=== PATIENT | male | born 1965 | race Asian ===

== ENCOUNTER 2016-11-14 12:49 | Inpatient (IN) | payer OTHER, BC ==
[~2016-11-14] VITALS: Ht 167.6 cm; Wt 84.7 kg
[~2016-11-14 12:49] MED LIST: AMLO10TA2 PO; ASPI325T4 PO; ATOR40TA78 PO; CHOL10003 PO; HYDR25TA6 PO; POTA10TA PO
[2016-11-14 13:19] LABS: HEMATOCRIT 30.8 % (39.2-51.8); HEMOGLOBIN 10.4 g/dL (13.7-18.0); WHITE BLOOD COUNT 9.6 x10^3/uL (3.4-10)
[2016-11-14] MEDS ORDERED: SODIUM CHLORIDE 0.9% 1,000ML IVBOLUS ONE (13:30)
[2016-11-14 13:32] LABS: ASPARTATE AMINO TRANSFERASE 12 U/L (15-37); BLOOD UREA NITROGEN 35 mg/dL (7-18)
[2016-11-14] MEDS ORDERED: PANTOPRAZOLE 80 MG in SODIUM CHLORIDE 0.9% 50 ML IVPB ONE (13:36)
[2016-11-14] MEDS ORDERED: SODIUM CHLORIDE 0.9% 1,000 ML IV ONE (13:36)
[2016-11-14] MEDS ORDERED: PANTOPRAZOLE 80 MG in SODIUM CHLORIDE 0.9% 100 ML IV SCH (13:36)
[2016-11-14] MEDS ORDERED: SODIUM CHLORIDE FLUSH 10ML SYR IVF ONE (14:00)
[2016-11-14] MEDS ORDERED: SODIUM CHLORIDE FLUSH 10ML SYR IVF PRN (15:30)
[2016-11-14] MEDS ORDERED: POLYETHYLENE GLYCOL 17 GM PACKET PO PRN (16:00)
[2016-11-14] MEDS ORDERED: BISACODYL 10 MG SUPP PR PRN (16:00)
[2016-11-14] MEDS ORDERED: ONDANSETRON ODT 4 MG PO PRN (16:00)
[2016-11-14] MEDS ORDERED: DOCUSATE 100 MG CAPSULE PO PRN (16:00)
[2016-11-14] MEDS ORDERED: ENALAPRILAT 1.25 MG/ML, 2ML IVPush PRN (16:00)
[2016-11-14] MEDS ORDERED: morphine SULFATE 10 MG/ML, 1ML IVPush PRN (16:00)
[2016-11-14] MEDS ORDERED: ONDANSETRON 2MG/ML, 2ML IVPush PRN (16:00)
[2016-11-14] MEDS ORDERED: LOSA100T6 PO (16:06)
[2016-11-14] MEDS ORDERED: METO50TA11 PO (16:06)
[2016-11-14] MEDS ORDERED: HYDR-879 PO (16:06)
[2016-11-14] MEDS ORDERED: CLOP75TA PO (16:06)
[2016-11-14] MEDS ORDERED: OMEP-110 PO (16:06)
[2016-11-14 17:51] VITALS: BP 122/81
[2016-11-14] MEDS: NS + 20MEQ KCL 1,000 ML IV SCH (18:01)
[2016-11-14] MEDS: METOPROLOL TARTRATE 25 MG TABLET PO SCH (18:05)
[2016-11-14 20:40] VITALS: BP 124/74
[2016-11-14 22:16] LABS: IS PT STATUS REG ER OR PRE ER? NO
[2016-11-15 02:00] VITALS: BP 104/65
[2016-11-15] MEDS: PANTOPRAZOLE 80 MG in SODIUM CHLORIDE 0.9% 100 ML IV SCH ×3 (02:56→23:41)
[2016-11-15 04:59] LABS: HEMATOCRIT 27.6 % (39.2-51.8); HEMOGLOBIN 9.3 g/dL (13.7-18.0); WHITE BLOOD COUNT 5.9 x10^3/uL (3.4-10)
[2016-11-15 05:08] LABS: BLOOD UREA NITROGEN 11 mg/dL (7-18)
[2016-11-15 05:21] LABS: IS PT STATUS REG ER OR PRE ER? NO
[2016-11-15 05:43] VITALS: BP 110/73
[2016-11-15] MEDS: METOPROLOL TARTRATE 25 MG TABLET PO SCH ×2 (05:44→18:45)
[2016-11-15] MEDS: NS + 20MEQ KCL 1,000 ML IV SCH (06:11)
[2016-11-15 07:33] VITALS: BP 124/80
[2016-11-15] MEDS ORDERED: MIDAZOLAM 1 MG/ML, 5ML ONE (07:56)
[2016-11-15] MEDS ORDERED: FENTANYL PF 100 MCG/2ML ONE (07:56)
[2016-11-15] MEDS: CHOLECALCIFEROL 1,000 UNIT TABLET PO SCH (09:28)
[2016-11-15] MEDS: POTASSIUM CHLORIDE 20 MEQ TAB.ER.PRT PO SCH (09:28)
[2016-11-15] MEDS: ATORVASTATIN 40 MG TABLET PO SCH (09:28)
[2016-11-15] MEDS ORDERED: POTASSIUM CHLORIDE 20 MEQ TAB.ER.PRT PO ONE (10:30)
[2016-11-15 12:31] VITALS: BP 112/77
[2016-11-15 18:45] VITALS: BP 122/86
[2016-11-15 20:00] VITALS: BP 121/75
[2016-11-15 22:03] LABS: HEMATOCRIT 27.7 % (39.2-51.8); HEMOGLOBIN 9.3 g/dL (13.7-18.0)
[2016-11-16 02:00] VITALS: BP 127/76
[2016-11-16 05:15] LABS: HEMATOCRIT 27.2 % (39.2-51.8); HEMOGLOBIN 9.3 g/dL (13.7-18.0); WHITE BLOOD COUNT 5.8 x10^3/uL (3.4-10)
[2016-11-16] MEDS: METOPROLOL TARTRATE 25 MG TABLET PO SCH (06:04)
[2016-11-16 07:12] VITALS: BP 113/75
[2016-11-16] MEDS: ATORVASTATIN 40 MG TABLET PO SCH (08:58)
[2016-11-16] MEDS: POTASSIUM CHLORIDE 20 MEQ TAB.ER.PRT PO SCH (08:58)
[2016-11-16] MEDS: CHOLECALCIFEROL 1,000 UNIT TABLET PO SCH (08:58)
[2016-11-16] MEDS ORDERED: PANTOPROZOLE 40MG TABLET PO SCH (09:30)
[2016-11-16] MEDS ORDERED: PANT40TA5 PO (09:49)
[2016-11-16 12:54] VITALS: BP_SYST 104; BP_SYST 159; BP_DIAS 66; BP_DIAS 80
== END 2016-11-16 18:57 | disposition home or self-care (01) | DRG 377 ==
LOC: ED 15:12 → EDIP 15:25 → 4WST 16:44
PROVIDERS: ADMIT Internal Medicine; ATTEND Internal Medicine
PROC: 0DB38ZX Excision of Lower Esophagus, Via Natural or Artificial Opening Endoscopic, Diagnostic (ICD-10-PCS; principal; 2016-11-15 08:00)
DX: K92.2 Gastrointestinal hemorrhage, unspecified (principal); K85.90 Acute pancreatitis without necrosis or infection, unspecified; D62 Acute posthemorrhagic anemia; K22.10 Ulcer of esophagus without bleeding; Z95.1 Presence of aortocoronary bypass graft; I25.10 Atherosclerotic heart disease of native coronary artery without angina pectoris; Z83.3 Family history of diabetes mellitus; Z82.49 Family history of ischemic heart disease and other diseases of the circulatory system; I10 Essential (primary) hypertension; E55.9 Vitamin D deficiency, unspecified; M54.30 Sciatica, unspecified side; E78.5 Hyperlipidemia, unspecified; K44.9 Diaphragmatic hernia without obstruction or gangrene; E87.6 Hypokalemia; K29.80 Duodenitis without bleeding; I45.81 Long QT syndrome; K21.9 Gastro-esophageal reflux disease without esophagitis; E78.00 Pure hypercholesterolemia, unspecified; Z87.891 Personal history of nicotine dependence
CPT/HCPCS: 36415; 80048; 80053; 81003; 83690; 83735; 84484; 85014; 85018; 85025; 85610; 86850; 86900; 88305; 88312; 93005; 93306; 99152; 99153; 99285; J2250; J3010; J3480; C9113; J7030

== ENCOUNTER 2016-12-30 05:44 | Day surgery (SDC) | payer OTHER, BC ==
[~2016-12-30] VITALS: Ht 167.6 cm; Wt 86.8 kg
[~2016-12-30 05:44] MED LIST changes: +ASPI325T17 PO; -ASPI325T4 PO; +CLOP75TA PO; +HYDR-879 PO; +LOSA100T6 PO; +METO-264 PO; +OMEP-110 PO; +PANT40TA5 PO
[2016-12-30 06:29] VITALS: BP 137/88
[2016-12-30] MEDS ORDERED: LIDOCAINE 1%, 2ML ONE (06:37)
[2016-12-30] MEDS ORDERED: LACTATED RINGERS 1,000 ML IV SCH (07:22)
[2016-12-30] MEDS ORDERED: MIDAZOLAM 1 MG/ML, 2ML ONE (07:28)
[2016-12-30] MEDS ORDERED: FENTANYL PF 100 MCG/2ML ONE (07:29)
[2016-12-30] MEDS ORDERED: ACETAMINOPHEN 325 MG TABLET PO PRN (07:30)
[2016-12-30] MEDS ORDERED: MEPERIDINE/PF 25MG/0.5ML IVPush PRN (07:30)
[2016-12-30] MEDS ORDERED: LIDOCAINE 1%, 2ML SQ PRN (07:30)
[2016-12-30] MEDS ORDERED: METOPROLOL 1 MG/ML, 5ML IV PRN (07:30)
[2016-12-30] MEDS ORDERED: EPHEDRINE 50 MG/ML, 1ML IVPush PRN (07:30)
[2016-12-30] MEDS ORDERED: ONDANSETRON 2MG/ML, 2ML IVPush PRN (07:30)
[2016-12-30] MEDS ORDERED: FENTANYL PF 100 MCG/2ML IV PRN (07:30)
[2016-12-30] MEDS ORDERED: PROMETHAZINE 25 MG/ML, 1ML IV PRN (07:30)
[2016-12-30] MEDS ORDERED: hydrALAzine 20 MG/ML, 1ML IV PRN (07:30)
[2016-12-30] MEDS ORDERED: KETOROLAC 30 MG/1 ML IV PRN (07:30)
[2016-12-30] MEDS ORDERED: METOCLOPRAMIDE 5 MG/ML, 2ML IV PRN (07:30)
[2016-12-30] MEDS ORDERED: HYDROmorphone 1 MG/ML, 1ML IV PRN (07:30)
[2016-12-30] MEDS ORDERED: ALBUTEROL SULFATE 2.5 MG/3 ML NPPB PRN (07:30)
[2016-12-30] MEDS ORDERED: LABETALOL 5MG/ML, 20ML IV PRN (07:30)
[2016-12-30] MEDS ORDERED: DEXAMETHASONE 4 MG/ML, 1ML ONE (07:31)
[2016-12-30] MEDS ORDERED: PROPOFOL 10 MG/ML, 20ML ONE (07:31)
[2016-12-30] MEDS ORDERED: ROCURONIUM 10 MG/ML ONE (07:31)
[2016-12-30] MEDS ORDERED: ONDANSETRON 2MG/ML, 2ML ONE (07:31)
[2016-12-30] MEDS ORDERED: INDOCYANINE GREEN 25 MG VIAL ONE ×2 (07:59→11:18)
== END 2016-12-30 10:40 ==
LOC: OUT 05:44
PROVIDERS: ATTEND Internal Medicine Gastroenterology
DX: T85.590A Other mechanical complication of bile duct prosthesis, initial encounter (principal); Z88.5 Allergy status to narcotic agent; Z98.890 Other specified postprocedural states; I10 Essential (primary) hypertension; Y83.8 Other surgical procedures as the cause of abnormal reaction of the patient, or of later complication, without mention of misadventure at the time of the procedure; Y92.89 Other specified places as the place of occurrence of the external cause
CPT/HCPCS: 43275; 88305; A4648; J1100; J2250; J2405; J2704; J3010; J3490; J7120

== ENCOUNTER 2019-04-27 06:55 | Outpatient (CLI) | payer BC ==
[~2019-04-27 06:55] MED LIST changes: -AMLO10TA2 PO; +AMLO10TA8 PO; +HYDR-3622 PO; -HYDR-879 PO; +LOSA100T14 PO; -LOSA100T6 PO
== END 2019-04-27 23:59 | disposition home or self-care (01) ==
LOC: CFH 06:55
PROVIDERS: ATTEND Internal Medicine Cardiovascular Disease
DX: I08.8 Other rheumatic multiple valve diseases (principal); I10 Essential (primary) hypertension; I25.119 Atherosclerotic heart disease of native coronary artery with unspecified angina pectoris
CPT/HCPCS: 78452; 93017; 93306; A9502